=== PATIENT | female | born 1995 | race American Indian/Alaskan Native ===

== ENCOUNTER 2020-05-09 17:32 | Emergency (ER) | payer SELFPAY ==
--- NOTE | 2020-05-09 17:43 | Emergency Department Report ---
Blank Doc - Documentation Documentation: 25-year-old female that presents with lower back pains and left flank pain. This initial assessment/diagnostic orders/clinical plan/treatment(s) is/are subject to change based on patient's health status, clinical progression and re- assessment by fellow clinical providers in the ED. Further treatment and workup at subsequent clinical providers discretion. Patient/guardians urged not to elope from the ED as their condition may be serious if not clinically assessed and managed. Initial orders include: 1- Patient sent to [facility] for further evaluation and treatment 2- UA
[2020-05-09] MEDS ORDERED: ACETAMINOPHEN 325 MG TAB PO ONE (17:45)
[2020-05-09] MEDS ORDERED: ACETAMINOPHEN 325 MG TAB ONE (17:48)
[2020-05-09 18:30] LABS: Bacteria,Urine 3+ /HPF (Negative); Bilirubin,Urine NEG (Negative); Blood,Urine SM (Negative); Color,Urine Yellow (Yellow); Protein,Urine <15 mg/dL mg/dL (Negative); Urobilinogen,Urine < 2.0 mg/dL (<2.0)
[2020-05-09 18:32] LABS: HCG Qualitative,Urine Negative (Negative)
[2020-05-09 18:38] LABS: Basophils % (Auto) 0.5 % (0.0-1.8); Hematocrit 38.9 % (30.3-42.9); Hemoglobin 13.5 gm/dl (10.1-14.3); Lymphocytes # (Auto) 1.2 K/mm3 (1.2-5.4); Lymphocytes % (Auto) 13.1 % (13.4-35.0); Mean Corpuscular HGB Conc 35 % (30-34); Mean Corpuscular Volume 94 fl (79-97); Monocytes # (Auto) 0.9 K/mm3 (0.0-0.8); Monocytes % (Auto) 9.6 % (0.0-7.3); Platelet Count 237 K/mm3 (140-440); Red Blood Count 4.15 M/mm3 (3.65-5.03); Red Cell Distribution Width 12.9 % (13.2-15.2)
[2020-05-09 19:01] LABS: Alanine Aminotransferase 10 units/L (7-56); Albumin 4.3 g/dL (3.9-5); Blood Urea Nitrogen 6 mg/dL (7-17); Calcium 9.5 mg/dL (8.4-10.2); Hemolysis Index 3
[2020-05-09 19:03] LABS: BUN/Creatinine Ratio 9
[2020-05-09] MEDS ORDERED: KETOROLAC 30 MG/1 ML INJ IV ONE (23:15)
[2020-05-09] MEDS ORDERED: cefTRIAXone/NS 1 GM/50 ML 1 GM/50 ML BAG IV ONE (23:15)
[2020-05-09] MEDS ORDERED: ONDANSETRON 4 MG ODT TAB PO ONE (23:54)
[2020-05-09] MEDS ORDERED: cephALEXin 500 MG CAP PO ONE (23:54)
[2020-05-09] MEDS ORDERED: IBUPROFEN 600 MG TAB PO ONE (23:55)
--- NOTE | 2020-05-09 23:57 | Emergency Department Report ---
ED Back Pain/Injury HPI - General Chief Complaint: Back Pain/Injury Stated Complaint: BACK/LOWER SIDE PAIN Time Seen by Provider: 05/09/20 17:42 Source: patient Limitations: No Limitations - History of Present Illness Initial Comments: Patient is a A0 25-year-old -[place] female with no past medical history who presents to the ED with complaint of acute onset persistent left lower back pain that radiates to the left flank for the last 1 week. Patient also complains of worsening pain and intermittent fever with chills, lack of appetite for the last 2 days. Patient denies nausea, vomiting, vaginal bleeding, vaginal discharge, dysuria, urinary frequency and urgency, abdominal pain, diarrhea, dizziness, syncope, cough, sore throat, nasal and sinus congestion or headache. MD Complaint: back pain (lower), other (left flank pain) -: Sudden, week(s) (1) Similar Symptoms Previously: Yes Place: home Radiation: flank (left flank) Severity: severe Severity scale (0 -10): 8 Quality: sharp Consistency: constant Improves With: none Worsens With: none Associated Symptoms: denies other symptoms. denies: weakness, chest pain, numbness, difficulty walking, cough, difficulty urinating, fever/chills, constipation, headaches, abdominal pain, loss of appetite, malaise, nausea/vomiting, rash, seizure, syncope, other - Related Data Previous Rx's Medication Instructions Recorded Last Taken Type Cyclobenzaprine [Flexeril] 10 mg PO Q8H PRN #12 tablet 05/09/20 Unknown Rx Ibuprofen [Motrin] 600 mg PO Q8H PRN #30 tablet 05/09/20 Unknown Rx cephALEXin [Keflex] 500 mg PO Q6HR #40 capsule 05/09/20 Unknown Rx Allergies Allergy/AdvReac Type Severity Reaction Status Date / Time No Known Allergies Allergy Unverified 05/09/20 17:42 ED Review of Systems ROS: Stated complaint: BACK/LOWER SIDE PAIN Other details as noted in HPI Constitutional: chills, fever, malaise Eyes: denies: eye pain, eye discharge, vision change ENT: denies: ear pain, throat pain Respiratory: denies: cough, shortness of breath, wheezing Cardiovascular: denies: chest pain, palpitations Endocrine: no symptoms reported Gastrointestinal: abdominal pain (left flank pain). denies: nausea, vomiting, diarrhea Genitourinary: denies: urgency, dysuria, discharge Musculoskeletal: denies: back pain, joint swelling, arthralgia Skin: denies: rash, lesions Neurological: denies: headache, weakness, paresthesias Psychiatric: denies: anxiety, depression Hematological/Lymphatic: denies: easy bleeding, easy bruising ED Past Medical Hx - Past Medical History Previous Medical History?: No - Surgical History Past Surgical History?: Yes Additional Surgical History: c section - Medications Home Medications: Home Medications Medication Instructions Recorded Confirmed Last Taken Type Cyclobenzaprine [Flexeril] 10 mg PO Q8H PRN #12 tablet 05/09/20 Unknown Rx Ibuprofen [Motrin] 600 mg PO Q8H PRN #30 tablet 05/09/20 Unknown Rx cephALEXin [Keflex] 500 mg PO Q6HR #40 capsule 05/09/20 Unknown Rx ED Physical Exam - General Limitations: No Limitations General appearance: alert, in no apparent distress - Head Head exam: Present: atraumatic, normocephalic, normal inspection - Eye Eye exam: Present: normal appearance, PERRL, EOMI Pupils: Present: normal accommodation - ENT ENT exam: Present: normal exam, normal orophraynx, mucous membranes moist, TM's normal bilaterally, normal external ear exam - Neck Neck exam: Present: normal inspection, full ROM - Respiratory Respiratory exam: Present: normal lung sounds bilaterally. Absent: respiratory distress, wheezes, rales, stridor, chest wall tenderness, accessory muscle use, decreased breath sounds - Cardiovascular Cardiovascular Exam: Present: regular rate, normal rhythm, normal heart sounds. Absent: systolic murmur, diastolic murmur, rubs, gallop - GI/Abdominal GI/Abdominal exam: Present: soft, normal bowel sounds. Absent: tenderness, guarding, hyperactive bowel sounds, hypoactive bowel sounds, organomegaly - Bi-manual exam: Present: other (Pelvic exam deferred) - Extremities Exam Extremities exam: Present: normal inspection, full ROM, normal capillary refill - Back Exam Back exam: Present: normal inspection, full ROM, tenderness (Palpable lumbosacral paraspinal musculoskeletal tenderness, palpable left CVA tenderness), CVA tenderness (L), muscle spasm, paraspinal tenderness. Absent: CVA tenderness (R), vertebral tenderness, rash noted - Neurological Exam Neurological exam: Present: alert, oriented X3, CN II-XII intact, normal gait, reflexes normal - Psychiatric Psychiatric exam: Present: normal affect, normal mood - Skin Skin exam: Present: warm, dry, intact, normal color. Absent: rash ED Course Vital Signs 05/09/20 05/10/20 05/10/20 17:44 00:05 04:54 Temperature 103.0 F H 102.9 F H 99.5 F Pulse Rate 94 H 98 H Respiratory 18 18 Rate Blood Pressure 110/69 Blood Pressure 111/72 [Left] O2 Sat by Pulse 83 L 98 Oximetry ED Medical Decision Making - Lab Data Result diagrams: 05/09/20 18:17 05/09/20 18:17 - Medical Decision Making This is a A0 25-year-old -[place] female with no past medical history who presents to the ED with complaint of acute onset persistent left lower back pain that radiates to the left flank for the last 1 week. Patient also complains of worsening pain and intermittent fever with chills, lack of appetite for the last 2 days. In the ED, patient is alert and oriented x3 and is not in distress but is febrile in triage. Patient was treated for fever with Tylenol, and lab test results were reviewed and showed significant urinary tract infection characterized by positive nitrites, large leukocyte esterase levels and >77 WBCs and 3+ bacteriuria. Lab test results also showed hyponatremia 132 mmol/L and hypochloremia of 93 mmol/L. Patient was offered normal saline IV 1 L bolus, Rocephin 1 g IV x1 and Toradol for pain but declined and requested to be discharged home on oral antibiotics and pain medication. Patient was therefore discharged home on Keflex, ibuprofen and muscle relaxant Flexeril. Prior to patient discharge from the ED, the vital signs were stable and patient was afebrile. Patient was advised to follow-up with her primary care physician in 7 to 10 days for reevaluation or return to the ED immediately if symptoms get worse. - Differential Diagnosis Pyelonephritis; cystitis; muscle spasm; ovarian cyst; muscle strain Critical care attestation.: If time is entered above; I have spent that time in minutes in the direct care of this critically ill patient, excluding procedure time. ED Disposition Clinical Impression: Acute urinary tract infection, Fever and chills, Acute abdominal pain in left flank, Spasm of muscle of lower back, Acute pyelonephritis Disposition: TO HOME OR SELFCARE Is pt being admited?: No Does the pt Need Aspirin: No Condition: Stable Instructions: Urinary Tract Infection in Women (ED), Fever in Adults (ED), Flank Pain (ED), Muscle Spasm (ED) Additional Instructions: Your lab test results show significant urinary tract infection. Therefore take medications including antibiotics as advised, drink plenty of fluids and follow- up with your primary care physician in 7 to 10 days for reevaluation. Return to the ED immediately if symptoms get worse. Prescriptions: Cyclobenzaprine [Flexeril] 10 mg PO Q8H PRN #12 tablet PRN Reason: Muscle Spasm cephALEXin [Keflex] 500 mg PO Q6HR #40 capsule Ibuprofen [Motrin] 600 mg PO Q8H PRN #30 tablet PRN Reason: Pain Referrals: TIKA CURIEL MD [Primary Care Provider] - 3-5 Days Time of Disposition: 23:58 Print Language: SERBIAN
[2020-05-10 00:06] VITALS: BP 111/72
== END 2020-05-10 01:31 | disposition home or self-care (01) ==
LOC: ED 17:32
DX: N39.0 Urinary tract infection, site not specified (principal); N10 Acute pyelonephritis; M62.830 Muscle spasm of back; Z79.1 Long term (current) use of non-steroidal anti-inflammatories (NSAID); Z79.899 Other long term (current) drug therapy
CPT/HCPCS: 36415; 80053; 81001; 81025; 82140; 85025; 87076; 87086; 87186; 99283; Q0162